=== PATIENT | female | born 1995 | race Caucasian/White ===

== ENCOUNTER 2017-01-28 22:20 | Observation (INO) | payer BC ==
[~2017-01-28] VITALS: Ht 157.5 cm; Wt 70.0 kg
[2017-01-28] MEDS ORDERED: ONDANSETRON 2MG/ML, 2ML ONE (23:20)
[2017-01-28] MEDS ORDERED: NALOXONE 0.4 MG/ML, 1ML ONE (23:20)
[2017-01-28] MEDS ORDERED: SODIUM CHLORIDE FLUSH 10ML SYR IVF ONE (23:30)
[2017-01-28] MEDS ORDERED: SODIUM CHLORIDE 0.9% 1,000ML IVBOLUS ONE (23:30)
[2017-01-28] MEDS ORDERED: ONDANSETRON 2MG/ML, 2ML IVPush ONE (23:30)
[2017-01-28] MEDS ORDERED: NALOXONE 0.4 MG/ML, 1ML IVPush PRN (23:30)
[2017-01-28 23:36] LABS: ASPARTATE AMINO TRANSFERASE 16 U/L (15-37); BLOOD UREA NITROGEN 14 mg/dL (7-18)
[2017-01-28 23:38] LABS: HEMATOCRIT 48.9 % (34.6-47.8); HEMOGLOBIN 17.1 g/dL (11.7-16.4); WHITE BLOOD COUNT 11.6 x10^3/uL (4.5-13.2)
[2017-01-28 23:41] LABS: ACETAMINOPHEN < 2 mcg/mL (10-30)
[2017-01-29 01:24] LABS: DAU SCREEN DISCLAIMER
[2017-01-29] MEDS ORDERED: HYDR25CA PO (04:40)
[2017-01-29] MEDS ORDERED: ONDANSETRON ODT 4 MG PO PRN (09:30)
[2017-01-29] MEDS ORDERED: DIPHENHYDRAMINE 50 MG CAPSULE PO PRN (09:30)
[2017-01-29] MEDS ORDERED: BISACODYL 10 MG SUPP PR PRN (09:30)
[2017-01-29] MEDS ORDERED: ACETAMINOPHEN 325 MG TABLET PO PRN (09:30)
[2017-01-29] MEDS ORDERED: POLYETHYLENE GLYCOL 17 GM PACKET PO PRN (09:30)
[2017-01-29] MEDS ORDERED: LORazepam 2 MG/ML, 1ML IM PRN (09:30)
[2017-01-29] MEDS ORDERED: DOCUSATE 100 MG CAPSULE PO PRN (09:30)
[2017-01-29] MEDS ORDERED: LORazepam 1MG TABLET PO PRN (09:30)
[2017-01-29] MEDS ORDERED: NICOTINE 14MG/24 HR PATCH.TD24 TD SCH (09:30)
[2017-01-29 10:00] VITALS: BP 96/56
[2017-01-29 11:33] LABS: HCG UR LOT HCG7030192
[2017-01-29 11:40] LABS: HCG UR OBC PASS
[2017-01-29 19:32] VITALS: BP 101/67
== END 2017-01-30 00:59 ==
LOC: ED 23:59 → EDIP 01-29 09:06 → 3E 01-29 10:14
PROVIDERS: ADMIT Internal Medicine; ATTEND Internal Medicine
DX: F15.129 Other stimulant abuse with intoxication, unspecified (principal); F12.19 Cannabis abuse with unspecified cannabis-induced disorder; J02.9 Acute pharyngitis, unspecified; F41.9 Anxiety disorder, unspecified; F10.10 Alcohol abuse, uncomplicated; F17.210 Nicotine dependence, cigarettes, uncomplicated; D75.1 Secondary polycythemia; R00.0 Tachycardia, unspecified; R41.82 Altered mental status, unspecified; Z83.3 Family history of diabetes mellitus; Z81.8 Family history of other mental and behavioral disorders
CPT/HCPCS: 36415; 70450; 71010; 80053; 80307; 80329; 81001; 81025; 84703; 85025; 87086; 96361; 96374; 96375; 99285; G0378; J2310; J2405; J7030; G0479; G0480

== ENCOUNTER 2018-05-03 11:02 | Emergency (ER) | payer BC ==
[~2018-05-03] VITALS: Ht 157.5 cm; Wt 69.9 kg
[~2018-05-03 11:02] MED LIST: HYDR25CA PO
[2018-05-03 11:14] VITALS: BP 119/81
== END 2018-05-03 12:08 | disposition home or self-care (01) ==
LOC: ED 12:06
DX: L03.311 Cellulitis of abdominal wall (principal); F17.200 Nicotine dependence, unspecified, uncomplicated
CPT/HCPCS: 99283

== ENCOUNTER 2019-03-10 21:03 | Emergency (ER) | payer BC, MEDICAID ==
[~2019-03-10] VITALS: Ht 154.9 cm; Wt 85.8 kg
[2019-03-10 22:12] VITALS: BP 114/68
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
== END 2019-03-10 22:54 | disposition home or self-care (01) ==
LOC: ED 22:49
DX: O26.892 Other specified pregnancy related conditions, second trimester (principal); O9A.212 Injury, poisoning and certain other consequences of external causes complicating pregnancy, second trimester; R10.9 Unspecified abdominal pain; Z3A.19 19 weeks gestation of pregnancy; Y04.8XXA Assault by other bodily force, initial encounter; Y93.89 Activity, other specified; Y92.89 Other specified places as the place of occurrence of the external cause; Y99.8 Other external cause status
CPT/HCPCS: 99284